=== PATIENT | male | born 1955 | race Hispanic/Latino ===

== ENCOUNTER 2024-09-06 14:41 | Emergency (ER) | payer MEDICARE ==
[~2024-09-06] VITALS: Ht 175.3 cm; Wt 85.5 kg
[2024-09-06] MEDS ORDERED: HYDROCHLOROTHIA25 MG PO (15:15)
[2024-09-06] MEDS ORDERED: METOPROLOL SUCC50 MG PO (15:15)
[2024-09-06] MEDS ORDERED: PLAVIX75 MG PO (15:15)
[2024-09-06] MEDS ORDERED: AMLODIPINE BESYL5 MG PO (15:15)
[2024-09-06] MEDS ORDERED: CEPHALEXIN 500 MG CAP PO SCH (15:30)
[2024-09-06] MEDS ORDERED: LIDOCAINE HCL 1% LOCAL INJ 20 ML VIAL INJ ONE (16:15)
[2024-09-06] MEDS ORDERED: CEPHALEXIN MONOHYDRATE 250 MG CAP ONE (16:18)
[2024-09-06] MEDS ORDERED: LIDOCAINE HCL 1% LOCAL INJ 20 ML VIAL ONE (16:18)
[2024-09-06] MEDS: BACITRACIN ZINC 0.9GM TP ONE (16:19)
[2024-09-06] MEDS: CEPHALEXIN MONOHYDRATE 250 MG CAP PO ONE (16:35)
[2024-09-06] MEDS: LIDOCAINE HCL 1% LOCAL INJ 20 ML VIAL INJ ONE (16:35)
[2024-09-06] MEDS ORDERED: CEPHALEXIN500 MG PO (16:39)
[2024-09-06 16:57] VITALS: PULSE 70; RESP 16; TEMP 98.2; O2SAT 95
== END 2024-09-06 16:58 | disposition home or self-care (01) ==
LOC: FSED 14:56
DX: S01.01XA Laceration without foreign body of scalp, initial encounter (principal); M54.2 Cervicalgia; R51.9 Headache, unspecified; W11.XXXA Fall on and from ladder, initial encounter; Y92.89 Other specified places as the place of occurrence of the external cause; I10 Essential (primary) hypertension; E11.9 Type 2 diabetes mellitus without complications; I25.10 Atherosclerotic heart disease of native coronary artery without angina pectoris; Z79.01 Long term (current) use of anticoagulants; Z95.5 Presence of coronary angioplasty implant and graft
CPT/HCPCS: 12002; 70450; 72125; 99283; J2003